=== PATIENT | male | born 1955 | race Caucasian/White ===

== ENCOUNTER 2017-05-05 14:07 | Inpatient (IN) | payer OTHER ==
[~2017-05-05] VITALS: Ht 172.7 cm; Wt 101.2 kg
[2017-05-05 15:03] VITALS: BP 129/78
[2017-05-05] MEDS ORDERED: SPIR25TA3 PO (15:55)
[2017-05-05] MEDS ORDERED: ALBU2.5V5 NEB (15:55)
[2017-05-05] MEDS ORDERED: LISI-334 PO (15:55)
[2017-05-05] MEDS ORDERED: GABA600T2 PO (15:55)
[2017-05-05] MEDS ORDERED: ALPR1TAB6 PO (15:55)
[2017-05-05] MEDS ORDERED: BUME1TAB PO (15:55)
[2017-05-05] MEDS ORDERED: CARV6.252 PO (15:55)
[2017-05-05] MEDS ORDERED: HYDR-2766 PO (15:55)
[2017-05-05] MEDS ORDERED: ALLO100T PO (15:55)
[2017-05-05] MEDS: IPRATRPIUM/ALBUTEROL 0.5/2.5MG 3 ML NEBU. NEB SCH ×2 (16:30→19:55)
[2017-05-05] MEDS: methylPREDNISolone SOD SUCC PF 40 MG/ML VIAL. IV SCH (16:46)
[2017-05-05 17:27] LABS: BASO # 0.1 x10^3/uL (0.0-0.2); BASO % 1 % (0-3); EOS % 2 % (0-3); HEMATOCRIT 42.4 % (39.0-53.0); HEMOGLOBIN 13.8 g/dL (13.0-17.5); LYMPH # 3.2 x10^3/uL (1.0-4.8); LYMPH % 28 % (24-48); MEAN CORPUSCULAR HEMOGLOBIN 30 pg (25-35); MEAN CORPUSCULAR HGB CONC 33 g/dL (31-37); MEAN CORPUSCULAR VOLUME 91 fL (79-100); MONO % 10 % (0-9); NEUT % 58 % (31-73); PLATELET COUNT 230 x10^3/uL (140-400); RED BLOOD COUNT 4.66 x10^6/uL (4.30-5.70); RED CELL DISTRIBUTION WIDTH 16.1 % (11.5-14.5); WHITE BLOOD COUNT 11.5 x10^3/uL (4.0-11.0)
[2017-05-05 17:40] LABS: ALBUMIN 3.7 g/dL (3.4-5.0); ALBUMIN/GLOBULIN RATIO 1.1 (1.0-1.7); CALCIUM 8.8 mg/dL (8.5-10.1); CREATININE 1.9 mg/dL (0.7-1.3); GFR 36.2; POTASSIUM 4.5 mmol/L (3.5-5.1); TOTAL BILIRUBIN 1.9 mg/dL (0.2-1.0); TOTAL PROTEIN 7.2 g/dL (6.4-8.2)
--- NOTE | 2017-05-05 18:25 | HP ---
ADMIT DATE: 05/05/2017 CHIEF COMPLAINT: Difficulty breathing. HISTORY OF PRESENT ILLNESS: A 61-year-old white male has a known severe dilated cardiomyopathy as well as COPD and has got had increasing shortness of breath for a month. He has taken azithromycin and some prednisone with mild benefit, but continues to have dyspnea. Chest x-ray showed a right middle lobe nodule with no infiltrates and increasing dyspnea prompted his evaluation in the office on admission. He denies sputum production, hemoptysis, fever, chills, weight loss, chest pain or other complaints. PAST MEDICAL HISTORY: He had a 20% ejection fraction per echo after heart catheterization was done in about 2011 with no coronary disease at that time. MEDICATIONS: He is on multiple meds per the home, his vaccinations are up-to-date. He takes hydrocodone for chronic pain and Xanax for anxiety. ALLERGIES: LISTED TO TETRACYCLINE. SOCIAL HISTORY: He is still a heavy smoker, has smoked for most of his adult life. He used to be an alcoholic, but is a nondrinker. He is , not employed. FAMILY HISTORY: Unremarkable. Both parents of cancer, unknown type. REVIEW OF SYSTEMS: No other specific complaints. OBJECTIVE: ENT: He has mild proptosis, otherwise all within normal limits. Pharynx is clear. NECK: Revealed no masses, nodes, JVD or bruits. LUNGS: Coarse inspiratory crackles and expiratory wheezes. No tachypnea. CARDIOVASCULAR: Regular rate with frequent irregularities that are probably PACs. EXTREMITIES: He has poor pulses in the left radial, but the right radial is unremarkable. He has 1+ ankle edema. ABDOMEN: Obese, soft, nontender. NEUROLOGIC: Physiologic and nonfocal. ASSESSMENT: Severe chronic obstructive pulmonary disease with right lung nodule, severe cardiomyopathy, dilated type; chronic tobacco abuse, history of alcohol abuse and undiagnosed sleep apnea. PLAN: As ordered. DAVID NAVA MD DR: GT/sherman JOB#: [id number] / [id number]
[2017-05-05 18:55] VITALS: BP 108/85
[2017-05-05] MEDS: ALPRAZolam 1 MG TABLET PO PRN (20:39)
[2017-05-05] MEDS: FAMOTIDINE 20 MG TABLET. PO SCH (20:39)
[2017-05-05] MEDS: HYDROcodone/APAP 10/325 1 TAB TABLET PO PRN (20:39)
[2017-05-05] MEDS: GABAPENTIN 400 MG CAPSULE. PO SCH (20:39)
[2017-05-05 23:00] VITALS: BP 125/69
[2017-05-06] MEDS: ALBUTEROL SULFATE 2.5 MG/3 ML NEBU. NEB PRN ×2 (00:08→03:11)
[2017-05-06 03:00] VITALS: BP 113/87
[2017-05-06] MEDS: HYDROcodone/APAP 10/325 1 TAB TABLET PO PRN ×3 (06:14→18:22)
[2017-05-06] MEDS: ALPRAZolam 1 MG TABLET PO PRN ×3 (06:15→18:22)
[2017-05-06 07:00] VITALS: BP 117/87
[2017-05-06] MEDS: methylPREDNISolone SOD SUCC PF 40 MG/ML VIAL. IV SCH ×2 (08:06→20:56)
[2017-05-06] MEDS: FAMOTIDINE 20 MG TABLET. PO SCH ×2 (08:07→20:55)
[2017-05-06] MEDS: GABAPENTIN 400 MG CAPSULE. PO SCH ×3 (08:07→20:55)
--- NOTE | 2017-05-06 08:24 | PDOC ---
Provider Note Provider Note vss, labs ok, crea 1.9, baseline 1.5- ct chest pending re RLL nodule- echo pending , last 2011 ef 20 %- he admits noncompliance w/ many meds - conr rocephin , steroids, pending sputum , ct chest DAVID NAVA MD May 06, 2017 08:24
[2017-05-06] MEDS: BUMETANIDE 1 MG TABLET. PO SCH ×2 (09:00→12:40)
[2017-05-06] MEDS: ALLOPURINOL 100 MG TABLET. PO SCH (09:00)
[2017-05-06] MEDS: SPIRONOLACTONE 25 MG TABLET PO SCH ×2 (09:00→12:40)
[2017-05-06] MEDS: IPRATRPIUM/ALBUTEROL 0.5/2.5MG 3 ML NEBU. NEB SCH ×4 (09:19→23:09)
--- NOTE | 2017-05-06 09:19 | CARD ---
APPROVED REPORT EXAM: Two-dimensional and M-mode echocardiogram with Doppler and color Doppler. Other Information Quality : Average Rhythm : NSR INDICATION Cardiomyopathy 2D DIMENSIONS RVDd3.9 (2.9-3.5cm)Left Atrium(2D)5.5 (1.6-4.0cm) IVSd0.9 (0.7-1.1cm)Aortic Root(2D)2.4 (2.0-3.7cm) LVDd6.7 (3.9-5.9cm)LVOT Diameter2.0 (1.8-2.4cm) PWd0.9 (0.7-1.1cm)LVDs6.7 (2.5-4.0cm) SV1.2 mlLVEF(%)15.0 (>50%) Aortic Valve AoV Peak Prince.113.7cm/sAoV VTI17.1cm AO Peak GR.5.2mmHgLVOT Peak Prince.58.3cm/s LVOT VTI 6.93cmAO Mean GR.3mmHg Mitral Valve MV E Ehshnkaa913.2cm/sMV E Peak Gr.101mmHg MV DECEL [id number] A Hyxfpcwz21.1cm/s MV AIH86liT/A Ratio1.9 MV A Prgkzqzf30vvZZU (PHT)3.68cm2 TDI E/Lateral E'16.4E/Medial E'16.0 Pulmonary Valve PV Peak Kgiceqmu66.0cm/sPV Peak Grad.2mmHg Tricuspid Valve TR P. Zodxbfpn979qs/sRAP DQSBABXJ0nqQs TR Peak Gr.56wiVpRVQJ15prXb LEFT VENTRICLE The Left Ventricle is severely dilated. There is normal left ventricular wall thickness. Left ventric le systolic function is severely impaired. The Ejection Fraction is 15-20%. There is global hypokines is of the left ventricle. Tissue Doppler imaging reveals severe left ventricular diastolic dysfunctio n. There is no ventricular septal defect visualized. RIGHT VENTRICLE The right ventricle is mildly dilated. The right ventricular systolic function is normal. ATRIA The left atrium is severely dilated. The right atrium is moderately dilated. The interatrial septum i s intact with no evidence for an atrial septal defect or patent foramen ovale as noted on 2-D or Dopp ler imaging. AORTIC VALVE The aortic valve is mildly calcified. The aortic valve is trileaflet. Doppler and Color Flow revealed no significant aortic regurgitation. There is no significant aortic valvular stenosis. MITRAL VALVE Mitral annular calcification is mild. The mitral valve leaflets are thickened. There is no mitral angel ve stenosis. Doppler and Color Flow revealed severe mitral regurgitation. Posterior leaflet resctrict ion noted. TRICUSPID VALVE The tricuspid valve is normal in structue. Doppler and Color Flow revealed moderate tricuspid regurgi tation. The PA pressure was estimated at 50 mmHg. There is no tricuspid valve stenosis. PULMONIC VALVE Doppler and Color Flow revealed no pulmonic valvular regurgitation. There is no pulmonic valvular luis enrique nosis. GREAT VESSELS The aortic root is normal in size. The IVC is dilated and collapses >50% with inspiration. PERICARDIAL EFFUSION There is no evidence of significant pericardial effusion. Critical Notification Date: 05/06/2017 Time: 08:53 Other Discipline : RAFIQ Erickson Critical Value: Yes <Conclusion> Left ventricle systolic function is severely impaired. The Ejection Fraction is 15-20%. There is global hypokinesis of the left ventricle. The left atrium is severely dilated. Doppler and Color Flow revealed severe mitral regurgitation. Posterior leaflet resctriction noted. Doppler and Color Flow revealed moderate tricuspid regurgitation. The PA pressure was estimated at 50 mmHg.
--- NOTE | 2017-05-06 10:29 | RAD ---
CT of the chest without contrast, 05/05/2017: History: Lung nodule, dyspnea Noncontrast scans were obtained and compared to a study from 10/12/2009. There is a 15 mm noncalcified pulmonary nodule in the lateral aspect of the right upper lobe as best seen on axial image 97 of series #6. Its margins are slightly irregular. This nodule has increased in size since 10/12/2009 at which time it measured 7-8 mm. There are scattered small lucencies in the lungs suggesting mild emphysema. There are a few scattered linear parenchymal scars. No other pulmonary mass or significant consolidation is seen. There is no evidence of pleural fluid. The heart is generally enlarged. There is mild calcific plaquing of the thoracic aorta without evidence of aneurysm. Multiple small mediastinal lymph nodes are present without evidence of pathologic enlargement. The gallbladder is surgically absent. Moderate scattered spurs are present in the spine. IMPRESSION: 1. Enlarging right upper lobe pulmonary nodule suggesting a lung malignancy. PET/CT scanning may be useful for further evaluation. 2. Emphysema with mild parenchymal scarring. 3. Moderate generalized cardiomegaly PQRS Compliance Statement: One or more of the following individualized dose reduction techniques were utilized for this examination: 1. Automated exposure control 2. Adjustment of the mA and/or kV according to patient size 3. Use of iterative reconstruction technique
[2017-05-06 11:00] VITALS: BP 115/76
[2017-05-06 15:00] VITALS: BP 112/81
[2017-05-06 19:00] VITALS: BP 148/97
[2017-05-06 23:00] VITALS: BP 110/81
[2017-05-07] MEDS: ALPRAZolam 1 MG TABLET PO PRN ×3 (02:24→12:46)
[2017-05-07] MEDS: HYDROcodone/APAP 10/325 1 TAB TABLET PO PRN ×3 (02:25→20:54)
[2017-05-07 03:00] VITALS: BP 126/96
[2017-05-07 07:00] VITALS: BP 118/92
[2017-05-07] MEDS ORDERED: FLUCONAZOLE 100 MG TABLET. PO ONE (08:45)
[2017-05-07] MEDS ORDERED: FUROSEMIDE 40 MG/4 ML VIAL. IVP ONE (08:45)
[2017-05-07] MEDS: IPRATRPIUM/ALBUTEROL 0.5/2.5MG 3 ML NEBU. NEB SCH ×4 (08:50→20:00)
--- NOTE | 2017-05-07 08:53 | PDOC ---
Provider Note Provider Note still dyspneic at rest- vss, lab ok- ct shows larger RUL lesion 15 mm- he is unwilling to do pet , see pulm doc, will do 6 min walk, add tiffanie re poor ef/ mitral regurg- cont iv meds- DAVID NAVA MD May 07, 2017 08:53
[2017-05-07] MEDS ORDERED: MAGNESIUM HYDROXIDE 2,400 MG/30 ML ORAL.SUSP. PO PRN (09:00)
[2017-05-07] MEDS ORDERED: HYDROcodone/APAP 5/325MG 1 TAB TABLET PO ONE (09:00)
[2017-05-07] MEDS: methylPREDNISolone SOD SUCC PF 40 MG/ML VIAL. IV SCH ×2 (09:16→20:54)
[2017-05-07] MEDS: FAMOTIDINE 20 MG TABLET. PO SCH ×2 (09:16→20:54)
[2017-05-07] MEDS: ALLOPURINOL 100 MG TABLET. PO SCH (09:17)
[2017-05-07] MEDS: GABAPENTIN 400 MG CAPSULE. PO SCH ×3 (09:17→20:54)
[2017-05-07] MEDS: LISINOPRIL 20 MG TABLET PO SCH (09:22)
[2017-05-07 11:00] VITALS: BP 137/90
[2017-05-07 15:00] VITALS: BP 111/87
[2017-05-07 19:00] VITALS: BP 92/64
[2017-05-07 23:00] VITALS: BP 116/87
[2017-05-08] MEDS: ALPRAZolam 1 MG TABLET PO PRN ×2 (00:12→07:06)
[2017-05-08] MEDS: ALBUTEROL SULFATE 2.5 MG/3 ML NEBU. NEB PRN (00:34)
[2017-05-08] MEDS: HYDROcodone/APAP 10/325 1 TAB TABLET PO PRN (07:06)
[2017-05-08] MEDS: IPRATRPIUM/ALBUTEROL 0.5/2.5MG 3 ML NEBU. NEB SCH (07:32)
--- NOTE | 2017-05-08 08:14 | DISCH ---
DISCHARGE INSTRUCTIONS Condition on Discharge Condition on Discharge: Stable Activity After Discharge Activity Instructions for Disc: No restrictions Diet after Discharge Diet after Discharge: Cardiac Follow-Up Follow up with: dr hampton 3-4 weeks DAVID NAVA MD May 08, 2017 08:14
--- NOTE | 2017-05-08 08:20 | PDOC ---
Provider Note Provider Note [id number] DAVID NAVA MD May 08, 2017 08:20
[2017-05-08] MEDS: SPIRONOLACTONE 25 MG TABLET PO SCH ×2 (08:21→09:00)
[2017-05-08] MEDS: ALLOPURINOL 100 MG TABLET. PO SCH (08:21)
[2017-05-08] MEDS: FAMOTIDINE 20 MG TABLET. PO SCH (08:21)
[2017-05-08] MEDS: BUMETANIDE 1 MG TABLET. PO SCH ×2 (08:22→09:00)
[2017-05-08 08:23] VITALS: BP 124/90
[2017-05-08] MEDS: LISINOPRIL 20 MG TABLET PO SCH (08:23)
[2017-05-08] MEDS: GABAPENTIN 400 MG CAPSULE. PO SCH (08:23)
--- NOTE | 2017-05-08 18:39 | DS ---
DATE OF DISCHARGE: 05/08/2017 HOSPITAL SUMMARY: A 61-year-old white male with severe COPD and severe cardiomyopathy who came in with increasing cough and shortness of breath. Chest x-ray as an outpatient showed a 15 mm right upper lobe nodule, and CT scan confirmed a 15 mm nodule in the right upper lobe. It was larger by double in about the last 6 years, but no other masses, adenopathy, or fluid was seen. Heart was enlarged. Sputum culture grew oral crystal. Creatinine was 1.9. Otherwise, the chemistry profile was unremarkable as was his CBC. He was given IV Rocephin and Solu-Medrol while in the hospital and has improved somewhat. Oxygen saturations presently remained in the mid 90s, and 6-minute walk did not support the need for home oxygen. He declines further evaluation of the probable right upper lobe malignancy, specifically a PET scan or pulmonary consultation and desires to go home at this time, and his is supportive of this. FINAL DIAGNOSES: 1. Acute exacerbation of severe chronic obstructive pulmonary disease. 2. Severe cardiomyopathy, dilated type, with secondary mitral regurgitation. 3. Right upper lobe mass, suspected to be pulmonary carcinoma. 4. Chronic kidney disease 3, stable. OPERATIONS, PROCEDURES, COMPLICATIONS, AND CONSULTATIONS: None. DISPOSITION: Prednisone taper over 8 days, Levaquin 500 mg daily for 8 more days. Rest of the medications remain the same which were all for his cardiomyopathy and his COPD and his chronic pain. We will increase his hydrocodone by half a tablet each morning only at his request but not further amounts given the risk and benefit ratio. We will do a PET scan as an outpatient if he is willing to proceed at a later time or have him see a community planning technician if he desires to do that as well. DAVID NAVA MD DR: GT/sherman JOB#: [id number] / [id number]
== END 2017-05-08 10:00 | disposition home or self-care (01) | DRG 181 ==
LOC: 5 NORTH 14:45
PROVIDERS: ADMIT Family Medicine; ATTEND Family Medicine
DX: C34.11 Malignant neoplasm of upper lobe, right bronchus or lung (principal); I42.0 Dilated cardiomyopathy; J44.1 Chronic obstructive pulmonary disease with (acute) exacerbation; I50.42 Chronic combined systolic (congestive) and diastolic (congestive) heart failure; F17.200 Nicotine dependence, unspecified, uncomplicated; I34.0 Nonrheumatic mitral (valve) insufficiency; N18.3 Chronic kidney disease, stage 3 (moderate); F41.9 Anxiety disorder, unspecified
CPT/HCPCS: 36415; 71250; 80053; 85027; 87070; 87205; 93306; 94250; 94620; 94640; 94760; J0696; J1940; J2920; J7620

== ENCOUNTER 2017-05-20 17:08 | Inpatient (IN) | payer OTHER ==
[~2017-05-20] VITALS: Ht 172.7 cm; Wt 99.6 kg
[~2017-05-20 17:08] MED LIST: ALBU2.5V5 NEB; ALLO100T PO; ALPR1TAB6 PO; BUME1TAB PO; CARV6.252 PO; GABA600T2 PO; HYDR-2766 PO; LISI-334 PO; SPIR25TA3 PO
[2017-05-20 17:56] LABS: BASO # 0.2 x10^3/uL (0.0-0.2); BASO % 1 % (0-3); EOS % 1 % (0-3); HEMATOCRIT 48.6 % (39.0-53.0); HEMOGLOBIN 15.7 g/dL (13.0-17.5); LYMPH % 19 % (24-48); MEAN CORPUSCULAR HEMOGLOBIN 30 pg (25-35); MEAN CORPUSCULAR HGB CONC 32 g/dL (31-37); MEAN CORPUSCULAR VOLUME 92 fL (79-100); MONO % 10 % (0-9); NEUT % 68 % (31-73); PLATELET COUNT 179 x10^3/uL (140-400); RED BLOOD COUNT 5.31 x10^6/uL (4.30-5.70); WHITE BLOOD COUNT 15.7 x10^3/uL (4.0-11.0)
[2017-05-20 18:12] LABS: CALCIUM 8.8 mg/dL (8.5-10.1); CREATININE 1.9 mg/dL (0.7-1.3); GFR 36.2; POTASSIUM 5.1 mmol/L (3.5-5.1)
[2017-05-20 18:18] LABS: ALBUMIN 4.1 g/dL (3.4-5.0); ALBUMIN/GLOBULIN RATIO 1.2 (1.0-1.7); TOTAL PROTEIN 7.6 g/dL (6.4-8.2)
[2017-05-20] MEDS ORDERED: IPRATRPIUM/ALBUTEROL 0.5/2.5MG 3 ML NEBU. NEB ONE (18:45)
[2017-05-20] MEDS ORDERED: MORPHINE SULFATE 4 MG/ML DISP.SYRIN. IV PRN ×2 (20:00→22:00)
[2017-05-20] MEDS ORDERED: FUROSEMIDE 40 MG/4 ML VIAL. IVP ONE (20:00)
[2017-05-20] MEDS ORDERED: ALPRAZolam 0.5 MG TABLET PO ONE (20:15)
[2017-05-20] MEDS: FUROSEMIDE INJ 100 MG in IV NORMAL SALINE 100ML 100 ML IV PRN (20:55)
[2017-05-20] MEDS ORDERED: ACETAMINOPHEN 325 MG TABLET. PO PRN (22:00)
[2017-05-20] MEDS ORDERED: NITROGLYCERIN SUBLINGUAL 0.4 MG BOTTLE OF 25. SL PRN (22:00)
[2017-05-20] MEDS ORDERED: ONDANSETRON PF 4 MG/2 ML VIAL. IV PRN (22:00)
[2017-05-20 22:01] VITALS: BP 121/87
--- NOTE | 2017-05-21 01:09 | ED.ADGEN ---
Past Medical History Past Medical History: Bronchitis, CHF, COPD, Hypertension, Other Additional Past Medical Histor: EMPHYSEMA,GOUT,ENLARGED HEART Past Surgical History: Cholecystectomy, Other Additional Past Surgical Histo: HERNIA X2 Additional Information: 2 CIGARETTES A DAY Alcohol Use: None Drug Use: None Adult General Chief Complaint Chief Complaint: SHORTNESS OF BREATH HPI HPI Patient is a 61 year oldisp-atnl-ofg man, history of end-stage CHF, COPD, hypertension, renal disease, who presents to the emergency department with a complaint of increased difficulty breathing, shortness of breath, leg swelling. Patient states that he isn't feeling "just worse and worse for a long time". Patient noted be hypoxic upon arousing the emergency department, oxygen saturations in the 80s, he does not wear oxygen at home at baseline. Patient was placed on 3 L nasal cannula in the ED, oxygen saturation is now in the upper 90s. Patient states "I'm just done". He states that he has been treated multiple times for his many medical conditions, and "things just aren't getting any better and I just don't want to do this anymore. He denies any suicidal ideation or homicidal ideation, denies any self-injurious behaviors, states "I' m just done with all of this". He states that he did broach the subject with his primary care provider Dr. Rocha previously, during his last admission, but has not yet followed up. He states that his is currently getting some and equal return to the ED. He denies any injuries, states he has been taking his medications as directed without relief of symptoms. He denies any recent travel or surgery, history of DVT or PE. No nausea or vomiting, fevers or chills. He states been able to sleep over the past few weeks, as whenever he lies flat he cannot breathe. He states that the symptoms she is experiencing are consistent with previous episodes of congestive heart failure exacerbation. Review of Systems Review of Systems Constitutional: Denies fever or chills. [] Eyes: Denies change in visual acuity. [] HENT: Denies nasal congestion or sore throat. [] Respiratory: Denies cough, complaining of worsening shortness of breath and dyspnea and exertion over the past several weeks. Cardiovascular: Denies chest pain or edema. [] GI: Denies abdominal pain, nausea, vomiting, bloody stools or diarrhea. [] : Denies dysuria. [] Musculoskeletal: Denies back pain or joint pain. [] Integument: Denies rash. [] Neurologic: Denies headache, focal weakness or sensory changes. [] Endocrine: Denies polyuria or polydipsia. [] Lymphatic: Denies swollen glands. [] Psychiatric: Denies depression or anxiety. [] Current Medications Current Medications Current Medications Medications (Trade) Dose Ordered Sig/Adam Start Time Stop Time Status Last Admin Dose Admin Albuterol/ Ipratropium (Duoneb) 3 ml 1X ONCE 05/20/17 18:45 05/20/17 18:46 DC 05/20/17 18:46 3 ML Alprazolam (Xanax) 1 mg 1X ONCE 05/20/17 20:15 05/20/17 20:16 DC 05/20/17 20:55 1 MG Furosemide (Lasix) 40 mg 1X ONCE 05/20/17 20:00 05/20/17 20:07 DC 05/20/17 20:00 40 MG Furosemide 100 mg/ Sodium Chloride 100 ml @ 0 mls/hr CONT PRN 05/20/17 20:00 05/20/17 20:55 10 MLS/HR Morphine Sulfate 4 mg PRN Q2HR PRN 05/20/17 20:00 05/20/17 22:04 DC Allergies Allergies Allergies Coded Allergies Type Severity Reaction Last Updated Verified Tetracyclines Allergy Intermediate 05/05/17 Yes Physical Exam Physical Exam Constitutional: Well developed, well nourished, no acute distress, non-toxic appearance. [] HENT: Normocephalic, atraumatic, bilateral external ears normal, oropharynx moist, no oral exudates, nose normal. [] Eyes: PERRLA, EOMI, conjunctiva normal, no discharge. [] Neck: Normal range of motion, no tenderness, supple, no stridor. [] Cardiovascular:Heart rate regular rhythm, no murmur [] Lungs & Thorax: Bilateral breath sounds clear to auscultation [] Abdomen: Bowel sounds normal, soft, no tenderness, no masses, no pulsatile masses. [] Skin: Warm, dry, no erythema, no rash. [] Back: No tenderness, no CVA tenderness. [] Extremities: No tenderness, no cyanosis, no clubbing, ROM intact, no edema. [] Neurologic: Alert and oriented X 3, normal motor function, normal sensory function, no focal deficits noted. [] Psychologic: Affect normal, judgement normal, mood normal. [] Current Patient Data Vital Signs Vital Signs Date Time Temp Pulse Resp B/P (MAP) Pulse Ox O2 Delivery O2 Flow Rate FiO2 05/20/17 20:01 99 20 120/65 (83) 96 2.0 05/20/17 18:48 Nasal Cannula 05/20/17 17:38 97.8 97.8 Lab Values Laboratory Tests Test 05/20/17 17:45 05/20/17 18:30 White Blood Count 15.7 x10^3/uL (4.0-11.0) H Red Blood Count 5.31 x10^6/uL (4.30-5.70) Hemoglobin 15.7 g/dL (13.0-17.5) Hematocrit 48.6 % (39.0-53.0) Mean Corpuscular Volume 92 fL (79-100) Mean Corpuscular Hemoglobin 30 pg (25-35) Mean Corpuscular Hemoglobin Concent 32 g/dL (31-37) Red Cell Distribution Width 17.0 % (11.5-14.5) H Platelet Count 179 x10^3/uL (140-400) Neutrophils (%) (Auto) 68 % (31-73) Lymphocytes (%) (Auto) 19 % (24-48) L Monocytes (%) (Auto) 10 % (0-9) H Eosinophils (%) (Auto) 1 % (0-3) Basophils (%) (Auto) 1 % (0-3) Neutrophils # (Auto) 10.7 x10^3uL (1.8-7.7) H Lymphocytes # (Auto) 3.0 x10^3/uL (1.0-4.8) Monocytes # (Auto) 1.6 x10^3/uL (0.0-1.1) H Eosinophils # (Auto) 0.2 x10^3/uL (0.0-0.7) Basophils # (Auto) 0.2 x10^3/uL (0.0-0.2) Sodium Level 138 mmol/L (136-145) Potassium Level 5.1 mmol/L (3.5-5.1) Chloride Level 97 mmol/L (98-107) L Carbon Dioxide Level 28 mmol/L (21-32) Anion Gap 13 (6-14) Blood Urea Nitrogen 33 mg/dL (8-26) H Creatinine 1.9 mg/dL (0.7-1.3) H Estimated GFR (Cockcroft-Gault) 36.2 BUN/Creatinine Ratio 17 (6-20) Glucose Level 106 mg/dL (70-99) H Calcium Level 8.8 mg/dL (8.5-10.1) Total Bilirubin 3.0 mg/dL (0.2-1.0) H Aspartate Amino Transferase (AST) 326 U/L (15-37) H Alanine Aminotransferase (ALT) 283 U/L (16-63) H Alkaline Phosphatase 89 U/L (46-116) Troponin I Quantitative 0.077 ng/mL (0.000-0.055) RX-Tux-U-Type Natriuretic Peptide 5577 pg/mL (0-124) H Total Protein 7.6 g/dL (6.4-8.2) Albumin 4.1 g/dL (3.4-5.0) Albumin/Globulin Ratio 1.2 (1.0-1.7) Lactic Acid Level 2.2 mmol/L (0.4-2.0) H Laboratory Tests 05/20/17 17:45 Laboratory Tests 05/20/17 17:45 EKG EKG EC:1734: Sinus tachycardia, heart rate 112 bpm, occasional APCs noted, QTc of 493, AR 1:30, QRS of 102, mild baseline artifact noted, right axis deviation, contour normality is noted in the inferior and lateral leads, abnormal ECG, does not meet STEMI criteria. As interpreted by me. Radiology/Procedures Radiology/Procedures Chest x-ray: One view: Significant cardiomegaly noted, slightly rotated, no pneumothorax, cephalization noted bilaterally, flattening of diaphragms and mild hyperinflation. As interpreted by me. [] Course & Med Decision Making Course & Med Decision Making Pertinent Labs and Imaging studies reviewed. (See chart for details) Discussion at bedside with patient regarding goals of care, after discussion patient is agreeable to continuing evaluation the ED, with goal of improving comfort and quality at this time, therefore is agreeable to receiving Lasix, and being admitted to the hospital where his symptoms can be improved, and hopefully be weaned off oxygen again. Patient states that he is agreeable to speaking with palliative care regarding initiation of hospice, and home services , so he does not need to travel to the hospital again. I did speak with the patient's primary care provider, Dr. Rocha, who is aware of the patient's feelings. He states that the patient was last in the hospital he did attempt to initiate a palliative care consultation, however the patient left the hospital quickly, and has not followed up in the office since that time, patient had actually been driven to the office today by the patient's , but declined to exit the vehicle when his attempted to accompanying him into the building. Patient's then brought him to [facility] for evaluation. Patient's was not present in the room during our conversation. Dr. Rocha requested the patient be admitted to his service as a full admission, to administer Lasix injection a 40 mg, and started a Lasix infusion at 10 mg an hour, to continue symptomatic management with morphine 4 mg every 2 hours, and for placement of a palliative care consultation. Discussed this with patient, he is agreeable this plan. He also received alprazolam in the ED for anxiety, and air hunger. He is resting more comfortably awaiting transfer to the floor. Dragon Disclaimer Dragon Disclaimer This electronic medical record was generated, in whole or in part, using a voice recognition dictation system. Departure Impression: Primary Impression: Acute exacerbation of CHF (congestive heart failure) Additional Impression: Goals of care, counseling/discussion Disposition: 09 ADMITTED INPATIENT Admitting Physician: Lenny Rocha Condition: IMPROVED Problem Qualifiers MARIBEL MERINO DO May 21, 2017 01:09
[2017-05-21 02:04] VITALS: BP 105/84
[2017-05-21] MEDS: FUROSEMIDE INJ 100 MG in IV NORMAL SALINE 100ML 100 ML IV PRN (04:15)
--- NOTE | 2017-05-21 04:28 | ACF ---
Admission Forms Criteria HEART FAILURE: COMMON COMPLICATIONS Clinical Indications for Inpatient Care (Place 'X' for any and all applicable criteria): Ongoing inpatient care may be indicated for heart failure with 1 or more of the following (1)(2)(3)(4)(5)(6)(7)(8): [ ]I. New-onset heart failure [ ]II. Acute cardiac ischemia causing or associated with failure [ ]III. Ongoing need for care for primary condition requiring frequent therapy adjustments because of changes in cardiac function (eg, drug dosage changes for drugs that are renally metabolized) [X]IV. Complications of heart failure, including 1 or more of the following: [ ]a) Hemodynamic instability [ ]b) Pericardial effusion [ ]c) Symptomatic pleural effusion [ ]d) Hypoxemia [ ]e) Tachypnea [X]f) Dyspnea [ ]g) Syncope [ ]h) Altered mental status [ ]i) Acute renal insufficiency that is severe (reduction of more than 50% in estimated glomerular filtration rate from baseline) or progressive reduction of more than 25% in estimated glomerular filtration rate from baseline, with creatinine continuing to rise) [ ]j) Debilitating anasarca (eg tissue breakdown with infection, inability to void due to edema) (E) [ ]k) Clinically significant metabolic abnormalities due to heart failure (eg, new-onset metabolic acidosis) Extended stay may be needed until ALL of the following are present (1)(3)(18)(41 )(55) [ ]a) Hemodynamic stability [ ]b) Stable and effective diuretic regimen established (or patient on stable dialysis regimen if in chronic renal failure) [ ]c) Volume status acceptable on oral medication [ ]d) Breathing comfortably at rest [ ]e) Saturation of arterial oxygen greater than 90% or at acceptable baseline [ ]f) Pulmonary edema absent or improved [ ]g) Peripheral or sacral edema absent or improved [ ]h) Renal function stable and manageable at a lower level of care [ ]i) Complications (eg, pleural effusion) resolved or manageable at a lower level of care [ ]g) Patient or caregiver has received written discharge instructions or educational material addressing activity level, diet, discharge medications, follow-up appointment, weight monitoring, and what to do if symptoms worsen.(25)(26) The original [employer] content created by [facility] has been revised. The portions of the content which have been revised are identified through the use of italic text, and [facility] has neither reviewed nor approved the modified material.All other unmodified content is copyright [facility]. Please see references footnoted in the original [facility] edition 2015 Admission Criteria Met?: Yes PAIGE MARTIN May 21, 2017 04:28
[2017-05-21 05:10] VITALS: BP 116/77
[2017-05-21 06:19] LABS: BASO # 0.1 x10^3/uL (0.0-0.2); BASO % 1 % (0-3); EOS % 1 % (0-3); HEMATOCRIT 45.6 % (39.0-53.0); HEMOGLOBIN 15.2 g/dL (13.0-17.5); LYMPH # 2.3 x10^3/uL (1.0-4.8); LYMPH % 19 % (24-48); MEAN CORPUSCULAR HEMOGLOBIN 30 pg (25-35); MEAN CORPUSCULAR HGB CONC 33 g/dL (31-37); MEAN CORPUSCULAR VOLUME 90 fL (79-100); MONO % 11 % (0-9); NEUT % 68 % (31-73); PLATELET COUNT 160 x10^3/uL (140-400); RED BLOOD COUNT 5.06 x10^6/uL (4.30-5.70); RED CELL DISTRIBUTION WIDTH 17.1 % (11.5-14.5); WHITE BLOOD COUNT 11.8 x10^3/uL (4.0-11.0)
[2017-05-21 06:40] LABS: CALCIUM 8.5 mg/dL (8.5-10.1); CREATININE 1.8 mg/dL (0.7-1.3); GFR 38.6; POTASSIUM 3.4 mmol/L (3.5-5.1)
--- NOTE | 2017-05-21 06:59 | EKG ---
[facility] [address] [place] [address] Test Date: 2017-05-20 Test Time: 17:34:17 Pat Name: BAUTISTA SOMERS Department: Room: Gender: M Lease Out Man: : 1955 Requested By: MARIBEL MERINO Order Number: [id number] Reading MD: Measurements Intervals [place] Rate: 112 P: 28 GA: 130 QRS: 102 QRSD: 102 T: 11 QT: 360 QTc: 493 Interpretive Statements SINUS TACHYCARDIA VENTRICULAR PREMATURE COMPLEX(ES) LEFT ATRIAL ABNORMALITY RIGHTWARD AXIS LOW LIMB LEAD VOLTAGE RI6.01 Unconfirmed report No previous ECG available for comparison
[2017-05-21 07:00] VITALS: BP 112/81
--- NOTE | 2017-05-21 08:10 | RAD ---
Portable chest, 05/20/2017: History: Shortness of breath, weakness, chronic bronchitis Comparison is made to a study from 04/04/2012. The heart has increased in size and is now mildly enlarged. There is mild tortuosity of the thoracic aorta. The pulmonary vascularity is normal. No pulmonary infiltrate is seen. There is no evidence of pleural fluid. IMPRESSION: Cardiomegaly
[2017-05-21] MEDS: IPRATRPIUM/ALBUTEROL 0.5/2.5MG 3 ML NEBU. NEB SCH ×2 (08:29→12:13)
--- NOTE | 2017-05-21 09:12 | PDOC1 ---
History and Physical Date of Admission Date of Admission DATE: 05/21/17 TIME: 09:10 Current Problem List Problem List Problems Medical Problems: (1) Acute exacerbation of CHF (congestive heart failure) Status: Acute (2) Goals of care, counseling/discussion Status: Acute Problems: Current Medications Current Medications Current Medications Albuterol/ Ipratropium (Duoneb) 3 ml 1X ONCE NEB Last administered on 18:46; Start 05/20/17 at 18:45; Stop 05/20/17 at 18:46; Status DC Alprazolam (Xanax) 1 mg 1X ONCE PO Last administered on 05/20/17 20:55; Start 05/20/17 at 20:15; Stop 05/20/17 at 20:16; Status DC Morphine Sulfate 4 mg PRN Q2HR PRN IV CHEST PAIN; Start 05/20/17 at 20:00; Stop 05/20/17 at 22:04; Status DC Furosemide (Lasix) 40 mg 1X ONCE IVP Last administered on 05/20/17 20:00; Start 05/20/17 at 20:00; Stop 05/20/17 at 20:07; Status DC Furosemide 100 mg/ Sodium Chloride 100 ml @ 0 mls/hr CONT PRN IV SEE I/O RECORD Last administered on 05/21/17 04:15; Start 05/20/17 at 20:00 Ondansetron HCl (Zofran) 4 mg PRN Q8HRS PRN IV NAUSEA/VOMITING; Start 05/20/17 at 22:00; Stop 05/21/17 at 21:59 Morphine Sulfate 4 mg PRN Q2HR PRN IV SEVERE PAIN; Start 05/20/17 at 22:00; Stop 05/21/17 at 21:59 Acetaminophen (Tylenol) 650 mg PRN Q4HRS PRN PO FEVER; Start 05/20/17 at 22:00; Stop 05/21/17 at 21:59 Nitroglycerin (Nitrostat) 0.4 mg PRN Q5MIN PRN SL CHEST PAIN; Start 05/20/17 at 22:00; Stop 05/21/17 at 21:59 Albuterol/ Ipratropium (Duoneb) 3 ml RTQID NEB Last administered on 05/21/17 08 :29; Start 05/21/17 at 08:00; Stop 05/22/17 at 07:59 Active Scripts Active Reported Hydrocodone-Apap 10-325 (Hydrocodone Bit/Acetaminophen) 1 Each Tablet 1 Tab PO PRN Q8HRS PRN Gabapentin 600 Mg Tablet 600 Mg PO BID Alprazolam 1 Mg Tablet 1 Mg PO QID PRN Allopurinol 100 Mg Tablet 100 Mg PO DAILY Albuterol Sulfate Neb Soln (Albuterol Sulfate) 2.5 Mg/3 Ml Vial.neb 2.5 Mg NEB QID PRN Lisinopril 20 Mg Tablet 20 Mg PO DAILY Bumetanide 1 Mg Tablet 1 Tab PO QODAY Spironolactone 25 Mg Tablet 25 Mg PO QODAY Carvedilol 6.25 Mg Tablet 6.25 Mg PO BIDWMEALS Allergies Allergies: Coded Allergies: Tetracyclines (Verified Allergy, Intermediate, 05/05/17) Vitals Vitals Vital Signs Date Time Temp Pulse Resp B/P (MAP) Pulse Ox O2 Delivery O2 Flow Rate FiO2 05/21/17 08:30 94 Nasal Cannula 2.0 05/21/17 07:00 98.7 97 22 112/81 (91) 98.7 Labs Labs Laboratory Tests Test 05/20/17 17:45 05/20/17 18:30 05/21/17 05:54 White Blood Count 15.7 x10^3/uL (4.0-11.0) 11.8 x10^3/uL (4.0-11.0) Red Blood Count 5.31 x10^6/uL (4.30-5.70) 5.06 x10^6/uL (4.30-5.70) Hemoglobin 15.7 g/dL (13.0-17.5) 15.2 g/dL (13.0-17.5) Hematocrit 48.6 % (39.0-53.0) 45.6 % (39.0-53.0) Mean Corpuscular Volume 92 fL (79-100) 90 fL (79-100) Mean Corpuscular Hemoglobin 30 pg (25-35) 30 pg (25-35) Mean Corpuscular Hemoglobin Concent 32 g/dL (31-37) 33 g/dL (31-37) Red Cell Distribution Width 17.0 % (11.5-14.5) 17.1 % (11.5-14.5) Platelet Count 179 x10^3/uL (140-400) 160 x10^3/uL (140-400) Neutrophils (%) (Auto) 68 % (31-73) 68 % (31-73) Lymphocytes (%) (Auto) 19 % (24-48) 19 % (24-48) Monocytes (%) (Auto) 10 % (0-9) 11 % (0-9) Eosinophils (%) (Auto) 1 % (0-3) 1 % (0-3) Basophils (%) (Auto) 1 % (0-3) 1 % (0-3) Neutrophils # (Auto) 10.7 x10^3uL (1.8-7.7) 8.0 x10^3uL (1.8-7.7) Lymphocytes # (Auto) 3.0 x10^3/uL (1.0-4.8) 2.3 x10^3/uL (1.0-4.8) Monocytes # (Auto) 1.6 x10^3/uL (0.0-1.1) 1.3 x10^3/uL (0.0-1.1) Eosinophils # (Auto) 0.2 x10^3/uL (0.0-0.7) 0.1 x10^3/uL (0.0-0.7) Basophils # (Auto) 0.2 x10^3/uL (0.0-0.2) 0.1 x10^3/uL (0.0-0.2) Sodium Level 138 mmol/L (136-145) 141 mmol/L (136-145) Potassium Level 5.1 mmol/L (3.5-5.1) 3.4 mmol/L (3.5-5.1) Chloride Level 97 mmol/L (98-107) 100 mmol/L (98-107) Carbon Dioxide Level 28 mmol/L (21-32) 28 mmol/L (21-32) Anion Gap 13 (6-14) 13 (6-14) Blood Urea Nitrogen 33 mg/dL (8-26) 28 mg/dL (8-26) Creatinine 1.9 mg/dL (0.7-1.3) 1.8 mg/dL (0.7-1.3) Estimated GFR (Cockcroft-Gault) 36.2 38.6 BUN/Creatinine Ratio 17 (6-20) Glucose Level 106 mg/dL (70-99) 116 mg/dL (70-99) Calcium Level 8.8 mg/dL (8.5-10.1) 8.5 mg/dL (8.5-10.1) Total Bilirubin 3.0 mg/dL (0.2-1.0) Aspartate Amino Transf (AST/SGOT) 326 U/L (15-37) Alanine Aminotransferase (ALT/SGPT) 283 U/L (16-63) Alkaline Phosphatase 89 U/L (46-116) Troponin I Quantitative 0.077 ng/mL (0.000-0.055) ZT-Lfv-C-Type Natriuretic Peptide 5577 pg/mL (0-124) Total Protein 7.6 g/dL (6.4-8.2) Albumin 4.1 g/dL (3.4-5.0) Albumin/Globulin Ratio 1.2 (1.0-1.7) Lactic Acid Level 2.2 mmol/L (0.4-2.0) Laboratory Tests Test 05/20/17 17:45 05/20/17 18:30 05/21/17 05:54 White Blood Count 15.7 x10^3/uL (4.0-11.0) 11.8 x10^3/uL (4.0-11.0) Red Blood Count 5.31 x10^6/uL (4.30-5.70) 5.06 x10^6/uL (4.30-5.70) Hemoglobin 15.7 g/dL (13.0-17.5) 15.2 g/dL (13.0-17.5) Hematocrit 48.6 % (39.0-53.0) 45.6 % (39.0-53.0) Mean Corpuscular Volume 92 fL (79-100) 90 fL (79-100) Mean Corpuscular Hemoglobin 30 pg (25-35) 30 pg (25-35) Mean Corpuscular Hemoglobin Concent 32 g/dL (31-37) 33 g/dL (31-37) Red Cell Distribution Width 17.0 % (11.5-14.5) 17.1 % (11.5-14.5) Platelet Count 179 x10^3/uL (140-400) 160 x10^3/uL (140-400) Neutrophils (%) (Auto) 68 % (31-73) 68 % (31-73) Lymphocytes (%) (Auto) 19 % (24-48) 19 % (24-48) Monocytes (%) (Auto) 10 % (0-9) 11 % (0-9) Eosinophils (%) (Auto) 1 % (0-3) 1 % (0-3) Basophils (%) (Auto) 1 % (0-3) 1 % (0-3) Neutrophils # (Auto) 10.7 x10^3uL (1.8-7.7) 8.0 x10^3uL (1.8-7.7) Lymphocytes # (Auto) 3.0 x10^3/uL (1.0-4.8) 2.3 x10^3/uL (1.0-4.8) Monocytes # (Auto) 1.6 x10^3/uL (0.0-1.1) 1.3 x10^3/uL (0.0-1.1) Eosinophils # (Auto) 0.2 x10^3/uL (0.0-0.7) 0.1 x10^3/uL (0.0-0.7) Basophils # (Auto) 0.2 x10^3/uL (0.0-0.2) 0.1 x10^3/uL (0.0-0.2) Sodium Level 138 mmol/L (136-145) 141 mmol/L (136-145) Potassium Level 5.1 mmol/L (3.5-5.1) 3.4 mmol/L (3.5-5.1) Chloride Level 97 mmol/L (98-107) 100 mmol/L (98-107) Carbon Dioxide Level 28 mmol/L (21-32) 28 mmol/L (21-32) Anion Gap 13 (6-14) 13 (6-14) Blood Urea Nitrogen 33 mg/dL (8-26) 28 mg/dL (8-26) Creatinine 1.9 mg/dL (0.7-1.3) 1.8 mg/dL (0.7-1.3) Estimated GFR (Cockcroft-Gault) 36.2 38.6 BUN/Creatinine Ratio 17 (6-20) Glucose Level 106 mg/dL (70-99) 116 mg/dL (70-99) Calcium Level 8.8 mg/dL (8.5-10.1) 8.5 mg/dL (8.5-10.1) Total Bilirubin 3.0 mg/dL (0.2-1.0) Aspartate Amino Transf (AST/SGOT) 326 U/L (15-37) Alanine Aminotransferase (ALT/SGPT) 283 U/L (16-63) Alkaline Phosphatase 89 U/L (46-116) Troponin I Quantitative 0.077 ng/mL (0.000-0.055) EL-Fry-O-Type Natriuretic Peptide 5577 pg/mL (0-124) Total Protein 7.6 g/dL (6.4-8.2) Albumin 4.1 g/dL (3.4-5.0) Albumin/Globulin Ratio 1.2 (1.0-1.7) Lactic Acid Level 2.2 mmol/L (0.4-2.0) VTE Prophylaxis Ordered VTE Prophylaxis Devices: No VTE Pharmacological Prophylaxi: No Assessment/Plan Assessment/Plan severe cardiomyopathy and copd, poor compliance w/ meds, wants to /be on hospice re poor qual of life- labs ok, less dyspnea w/ lasix- hospice consult , comfort care DAVID NAVA MD May 21, 2017 09:12
[2017-05-21] MEDS ORDERED: ALBUTEROL SULFATE 2.5 MG/3 ML NEBU. NEB PRN (09:15)
[2017-05-21] MEDS ORDERED: ALPRAZolam 1 MG TABLET PO PRN (09:15)
[2017-05-21] MEDS ORDERED: HYDROcodone/APAP 10/325 1 TAB TABLET PO PRN (09:15)
--- NOTE | 2017-05-21 09:27 | PDOC ---
Provider Note Provider Note less dyspnea, vss, will cons pall care re home hospice as he desires DAVID NAVA MD May 21, 2017 09:27
[2017-05-21] MEDS ORDERED: HYDROcodone/APAP 10/325 1 TAB TABLET PO SCH (09:30)
[2017-05-21 11:00] VITALS: BP 91/70
[2017-05-21] MEDS ORDERED: SPIRONOLACTONE 25 MG TABLET PO SCH (11:00)
[2017-05-21] MEDS ORDERED: CARVEDILOL 6.25 MG TABLET. PO SCH (11:00)
[2017-05-21] MEDS ORDERED: ALLOPURINOL 100 MG TABLET. PO SCH (11:00)
--- NOTE | 2017-05-22 07:57 | PDOC3 ---
Discharge Summary Visit Information Date of Admission: May 20, 2017 Date of Discharge: May 21, 2017 Final Diagnosis Problems Medical Problems: (1) Acute exacerbation of CHF (congestive heart failure) Status: Acute (2) Goals of care, counseling/discussion Status: Acute Brief Hospital Course Allergies Allergies Coded Allergies Type Severity Reaction Last Updated Verified Tetracyclines Allergy Intermediate 05/05/17 Yes Vital Signs Vital Signs Date Time Temp Pulse Resp B/P (MAP) Pulse Ox O2 Delivery O2 Flow Rate FiO2 05/21/17 12:14 Room Air 05/21/17 11:00 97.8 91 20 91/70 (77) 93 97.8 05/21/17 08:30 2.0 Lab Results Laboratory Tests Test 05/20/17 17:45 05/20/17 18:30 05/21/17 05:54 White Blood Count 15.7 x10^3/uL (4.0-11.0) 11.8 x10^3/uL (4.0-11.0) Red Blood Count 5.31 x10^6/uL (4.30-5.70) 5.06 x10^6/uL (4.30-5.70) Hemoglobin 15.7 g/dL (13.0-17.5) 15.2 g/dL (13.0-17.5) Hematocrit 48.6 % (39.0-53.0) 45.6 % (39.0-53.0) Mean Corpuscular Volume 92 fL (79-100) 90 fL (79-100) Mean Corpuscular Hemoglobin 30 pg (25-35) 30 pg (25-35) Mean Corpuscular Hemoglobin Concent 32 g/dL (31-37) 33 g/dL (31-37) Red Cell Distribution Width 17.0 % (11.5-14.5) 17.1 % (11.5-14.5) Platelet Count 179 x10^3/uL (140-400) 160 x10^3/uL (140-400) Neutrophils (%) (Auto) 68 % (31-73) 68 % (31-73) Lymphocytes (%) (Auto) 19 % (24-48) 19 % (24-48) Monocytes (%) (Auto) 10 % (0-9) 11 % (0-9) Eosinophils (%) (Auto) 1 % (0-3) 1 % (0-3) Basophils (%) (Auto) 1 % (0-3) 1 % (0-3) Neutrophils # (Auto) 10.7 x10^3uL (1.8-7.7) 8.0 x10^3uL (1.8-7.7) Lymphocytes # (Auto) 3.0 x10^3/uL (1.0-4.8) 2.3 x10^3/uL (1.0-4.8) Monocytes # (Auto) 1.6 x10^3/uL (0.0-1.1) 1.3 x10^3/uL (0.0-1.1) Eosinophils # (Auto) 0.2 x10^3/uL (0.0-0.7) 0.1 x10^3/uL (0.0-0.7) Basophils # (Auto) 0.2 x10^3/uL (0.0-0.2) 0.1 x10^3/uL (0.0-0.2) Sodium Level 138 mmol/L (136-145) 141 mmol/L (136-145) Potassium Level 5.1 mmol/L (3.5-5.1) 3.4 mmol/L (3.5-5.1) Chloride Level 97 mmol/L (98-107) 100 mmol/L (98-107) Carbon Dioxide Level 28 mmol/L (21-32) 28 mmol/L (21-32) Anion Gap 13 (6-14) 13 (6-14) Blood Urea Nitrogen 33 mg/dL (8-26) 28 mg/dL (8-26) Creatinine 1.9 mg/dL (0.7-1.3) 1.8 mg/dL (0.7-1.3) Estimated GFR (Cockcroft-Gault) 36.2 38.6 BUN/Creatinine Ratio 17 (6-20) Glucose Level 106 mg/dL (70-99) 116 mg/dL (70-99) Calcium Level 8.8 mg/dL (8.5-10.1) 8.5 mg/dL (8.5-10.1) Total Bilirubin 3.0 mg/dL (0.2-1.0) Aspartate Amino Transf (AST/SGOT) 326 U/L (15-37) Alanine Aminotransferase (ALT/SGPT) 283 U/L (16-63) Alkaline Phosphatase 89 U/L (46-116) Troponin I Quantitative 0.077 ng/mL (0.000-0.055) KH-Wth-W-Type Natriuretic Peptide 5577 pg/mL (0-124) Total Protein 7.6 g/dL (6.4-8.2) Albumin 4.1 g/dL (3.4-5.0) Albumin/Globulin Ratio 1.2 (1.0-1.7) Lactic Acid Level 2.2 mmol/L (0.4-2.0) Brief Hospital Course Mr. Rivas is a 61 old [sex] who presented with [ ] ongoing dyspnea, known CM/ COPD , wished to start hospice and comfort care- hospice consulted and he was discharged to home as he wished- labs same, diuresis w/ lasix infusion- prognosis poor re CM, copd, smoking, poor compliance- he and understand and agrre w/ -plan Discharge Information Condition at Discharge: Stable Disposition/Orders: D/C to Home w/ Hospice Scheduled Allopurinol (Allopurinol), 100 MG PO DAILY, (Reported) Bumetanide (Bumetanide), 1 TAB PO QODAY, (Reported) Carvedilol (Carvedilol), 6.25 MG PO BIDWMEALS, (Reported) Gabapentin (Gabapentin), 600 MG PO BID, (Reported) Lisinopril (Lisinopril), 20 MG PO DAILY, (Reported) Spironolactone (Spironolactone), 25 MG PO QODAY, (Reported) Scheduled PRN Albuterol Sulfate (Albuterol Sulfate Neb Soln), 2.5 MG NEB QID PRN for SHORTNESS OF BREATH, (Reported) Alprazolam (Alprazolam), 1 MG PO QID PRN for ANXIETY / AGITATION, (Reported) Hydrocodone Bit/Acetaminophen (Hydrocodone-Apap 10-325 ), 1 TAB PO PRN Q8HRS PRN for PAIN, (Reported) DAVID NAVA MD May 22, 2017 07:57
== END 2017-05-21 14:15 | disposition hospice, home (50) | DRG 291 ==
LOC: ER 17:08 → 2 SOUTH 20:27
PROVIDERS: ADMIT Family Medicine; ATTEND Family Medicine
DX: I50.23 Acute on chronic systolic (congestive) heart failure (principal); J96.20 Acute and chronic respiratory failure, unspecified whether with hypoxia or hypercapnia; I42.9 Cardiomyopathy, unspecified; I11.0 Hypertensive heart disease with heart failure; J44.9 Chronic obstructive pulmonary disease, unspecified; M10.9 Gout, unspecified; N28.9 Disorder of kidney and ureter, unspecified; R09.02 Hypoxemia; Z51.5 Encounter for palliative care; Z87.891 Personal history of nicotine dependence; Z88.8 Allergy status to other drugs, medicaments and biological substances; Z90.49 Acquired absence of other specified parts of digestive tract
CPT/HCPCS: 36415; 71010; 80048; 80053; 83605; 83880; 84484; 85027; 93005; 94250; 94640; 94760; 96374; A6539; J1940; J7620; 99285-25